=== PATIENT | male | born 2005 | race Caucasian/White ===

== ENCOUNTER 2024-10-01 13:57 | Emergency (ER) | payer SELFPAY ==
[2024-10-01 14:04] VITALS: BP 135/97
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
[2024-10-01] MEDS: MOTRIN 600 MG PO (17:02)
== END 2024-10-01 17:06 | disposition home or self-care (01) ==
LOC: EMR 13:57
PROVIDERS: EMERGENCY PHYSICIAN Emergency Medicine
DX: S13.4XXA Sprain of ligaments of cervical spine, initial encounter (principal); S09.90XA Unspecified injury of head, initial encounter; V43.62XA Car passenger injured in collision with other type car in traffic accident, initial encounter
CPT/HCPCS: 99284; 70450